=== PATIENT | female | born 1965 | race Caucasian/White ===

== ENCOUNTER 2023-03-29 19:50 | Emergency (ER) | payer OTHER ==
[~2023-03-29] VITALS: Ht 170.1 cm; Wt 86.2 kg
[2023-03-29] MEDS ORDERED: CLINDAMYCIN HC300 MG PO (20:17)
== END 2023-03-29 20:40 | disposition home or self-care (01) ==
LOC: ED 19:50
DX: K08.89 Other specified disorders of teeth and supporting structures (principal)